=== PATIENT | male | born 1930 | race Caucasian/White ===

== ENCOUNTER 2017-08-30 21:06 | Emergency (ER) | payer MEDICARE, OTHER ==
--- NOTE | 2017-08-31 02:18 | ER ---
HISTORY OF PRESENT ILLNESS: An 87-year-old male here with complaints of what he thinks was a bug that possibly crawled into his right ear canal. He states he feels funny and there was a little bit of pain on one occasion. There has not been any drainage from the ear. The patient denies any other injury to the ear. He states he otherwise feels fine. OBJECTIVE: GENERAL APPEARANCE: The patient is awake and alert. No obvious distress. EARS: Examining the right ear reveals no tragal or auricular tenderness with palpation. The ear canal is open. There is no sign of a foreign body or insect. The patient does have 1 dark brown hard lump of cerumen that is occluding about 40% of the ear canal. Examining the left ear canal reveals about 60% occlusion with yellowish brown cerumen. DIAGNOSIS: Cerumen impaction bilateral. TREATMENT PLAN: The patient would like to have the earwax removed from his right ear if possible using a curette. I tried to remove it, but it was stuck quite firmly, and after a couple of attempts, I quit as it was causing some minor irritation to the tissue at the base of the cerumen. I advised the patient to purchase some earwax drops such as Debrox or Cerumenex and use them for a few days. They are from [place], [place]. They are planning on going home in a couple of days. I advised patient to schedule an appointment in about a week to have the earwax removed at his primary clinic. CRS/MODL /[id number]
== END 2017-08-30 22:02 | disposition home or self-care (01) ==
LOC: LB.ED 21:06
DX: H61.23 Impacted cerumen, bilateral (principal)
CPT/HCPCS: 99282

== ENCOUNTER 2018-08-03 22:35 | Observation (INO) | payer MEDICARE, OTHER ==
--- NOTE | 2018-08-03 23:33 | EDM.PDOC ---
ED HPI GENERAL MEDICAL PROBLEM - General Chief Complaint: General Stated Complaint: abdominal pain Time Seen by Provider: 08/03/18 23:09 Source of Information: Reports: Patient, EMS, RN History Limitations: Reports: No Limitations - History of Present Illness INITIAL COMMENTS - FREE TEXT/NARRATIVE: 88 yr old male presents with abdominal pain, states for about 1 month, but worse in the last couple of days and no BM for 2 days. States he had a fall on the weekend and has back pain from this. states he did have back pain started in March after lifting on the couch and increase in pain now, after the fall on the weekend. States hx of 5 stent, pacemaker, ablation to heart, parkinson's disease and hypertension. Pt is alert and talkative. EMS brought pt into the ER, states pt did walk to the cot at the home. Pt was given Fentanyl on the ambulance ride into the hospital. Back Pain Score (Numeric/FACES): 8 Abdomen Pain Score (Numeric/FACES): 5 Bilateral Lower Back Pain Score (Numeric/FACES): 7 Abdominal Pain Score (Numeric/FACES): 5 - Related Data Allergies Allergy/AdvReac Type Severity Reaction Status Date / Time No Known Allergies Allergy Verified 08/04/18 00:29 Home Meds: Home Meds Aspirin 81 mg PO DAILY 08/04/18 [History] Bisoprolol [Zebeta] 5 mg PO BID 08/04/18 [History] Carbidopa/Levodopa [Carbidopa-Levodopa 25-100 Tab] 0.5 tab PO TIDAC 08/04/18 [ History] Irbesartan 150 mg PO BEDTIME 08/04/18 [History] Melatonin 10 mg PO BEDTIME PRN 08/04/18 [History] Nitroglycerin [Nitrostat] 0.4 mg SL ASDIRECTED 08/04/18 [History] [place]-3 Fatty Acids [[place]-3] 1,200 mg PO BEDTIME 08/04/18 [History] Pravastatin [Pravachol] 40 mg PO BEDTIME 08/04/18 [History] Warfarin [Coumadin] 3 mg PO ASDIRECTED 08/04/18 [History] Warfarin [Coumadin] 6 mg PO ASDIRECTED 08/04/18 [History] Past Medical History HEENT History: Reports: None Cardiovascular History: Reports: Afib, CAD, High Cholesterol, Hypertension, Pacemaker, PTCA Neurological History: Reports: Parkinson's - Past Surgical History HEENT Surgical History: Reports: Adenoidectomy, Tonsillectomy Cardiovascular Surgical History: Reports: Coronary Artery Stent, Pacer ED ROS GENERAL - Review of Systems Review Of Systems: See Below Constitutional: Denies: Fever, Chills HEENT: Reports: Glasses Respiratory: Reports: No Symptoms Cardiovascular: Reports: No Symptoms GI/Abdominal: Reports: Abdominal Pain, Constipation (no BM for 2 days), Other ( last BM 2 days ago). Denies: Decreased Appetite, Hematochezia, Melena, Nausea, Vomiting : Reports: Other (decrease is urination) Musculoskeletal: Reports: Back Pain (low thoracic back pain, states a fall on the weekend and another injury to the back in March.) Skin: Reports: Bruising (right 2-4 toes.) Neurological: Reports: Other (parkinson like symptoms) Psychiatric: Reports: No Symptoms Hematologic/Lymphatic: Reports: Other (Takes Coumadin, atrial fibrillation, last INR 1 week ago and 2.7) ED EXAM, GENERAL - Physical Exam Exam: See Below Exam Limited By: No Limitations General Appearance: Alert, No Apparent Distress Ears: Hearing Grossly Normal Nose: Normal Inspection, Normal Mucosa Throat/Mouth: Normal Inspection, Normal Voice, No Airway Compromise Head: Atraumatic, Normocephalic Neck: Supple, Non-Tender, Full Range of Motion Respiratory/Chest: Lungs Clear, Normal Breath Sounds Cardiovascular: Normal Peripheral Pulses, Regular Rate, Rhythm Peripheral Pulses: 2+: Dorsalis Pedis (L), Dorsalis Pedis (R) GI/Abdominal: Normal Bowel Sounds, Tender, Other (mild distention). No: Guarding, Rigid Extremities: Other (pain and bruising to right 2-4 toes.) Neurological: Alert, Oriented, Normal Cognition Skin Exam: Warm, Dry, Normal Color Lymphatic: No Adenopathy Course - Vital Signs Last Recorded V/S: Last Vital Signs Temp 97.6 F 08/04/18 04:45 Pulse 66 08/04/18 04:45 Resp 18 08/04/18 04:45 BP 185/120 H 08/04/18 04:45 Pulse Ox 99 08/04/18 04:45 - Orders/Labs/Meds Orders: Active Orders 24 hr Category Date Time Status Abdomen 2V AP Flat Upright [CR] Stat Exams 08/03/18 23:33 Taken Medication Orders Sodium Chloride (Normal Saline) 1,000 mls @ 75 mls/hr IV ASDIRECTED ANNEL Last Admin: 08/04/18 00:50 Dose: 75 mls/hr Melatonin (Melatonin) 10 mg PO BEDTIME PRN PRN Reason: Sleep Last Admin: 08/04/18 01:54 Dose: 10 mg Non-Formulary Medication (Aspirin [Aspirin]) 81 mg PO DAILY ANNEL [Carbidopa-Levodopa 25-100 Tab] 0.5 Ta * Own Med 0.5 tab PO TIDAC ANNEL Last Admin: 08/04/18 01:53 Dose: 2 tab (Irbesartan [ Irbesartan] 150 Mg)* Own Med 150 mg PO BEDTIME ANNEL Last Admin: 08/04/18 01:46 Dose: 150 mg Non-Formulary Medication ([place]-3 Fatty Acids [[place]-3]) 1,200 mg PO BEDTIME ANNEL (Pravastatin [ Pravachol] 40 Mg) Own Med 40 mg PO BEDTIME ANNEL Last Admin: 08/04/18 01:47 Dose: 40 mg Non-Formulary Medication (Warfarin [Coumadin]) 3 mg PO ASDIRECTED ANNEL Non-Formulary Medication (Warfarin [Coumadin]) 6 mg PO ASDIRECTED ANNEL Last Admin: 08/04/18 01:58 Dose: 6 mg Polyethylene Glycol (Miralax) 17 gm PO ONETIME ONE Stop: 08/04/18 07:51 Labs: Laboratory Tests 08/03/18 08/03/18 Range/Units 23:50 23:50 WBC 9.7 (4.0-11.0) K/uL RBC 3.67 L (4.50-6.50) M/uL Hgb 12.3 L (13.0-18.0) g/dL Hct 36.2 L (40.0-54.0) % MCV 99 H (76-96) fL MCH 33.5 H (27.0-32.0) pg MCHC 34.0 (31.0-35.0) g/dL RDW 13.7 (11.0-16.0) % Plt Count 140 L (150-400) K/uL MPV 9.7 (6.0-10.0) fL Neut % (Auto) 74.6 H (45.0-70.0) % Lymph % (Auto) 15.1 L (20.0-40.0) % Coleman % (Auto) 9.3 (3.0-10.0) % Eos % (Auto) 0.8 L (1.0-5.0) % Baso % (Auto) 0.2 (0.0-0.5) % Neut # (Auto) 7.24 (2.00-7.50) K/uL Lymph # (Auto) 1.46 L (1.50-4.00) K/uL Coleman # (Auto) 0.90 H (0.20-0.80) K/uL Eos # (Auto) 0.08 (0.04-0.40) K/uL Baso # (Auto) 0.02 (0.02-0.10) K/uL Sodium 134 L (136-145) mmol/L Potassium 4.1 (3.5-5.1) mmol/L Chloride 95 L (98-107) mmol/L Carbon Dioxide 30.3 (21.0-32.0) mmol/L Anion Gap 12.8 (5.0-15.0) mmol/L BUN 23 (8-26) mg/dL Creatinine 1.13 (0.70-1.30) mg/dL Est Cr Clr Drug Dosing 48.45 mL/min Estimated GFR (MDRD) > 60 (>60) MLS/MIN BUN/Creatinine Ratio 20.4 (6-25) Glucose 112 H (74-100) mg/dL Calcium 8.5 (8.5-10.1) mg/dL Total Bilirubin 0.9 (0.0-1.0) mg/dL AST 21 (15-37) U/L ALT 14 (12-78) U/L Alkaline Phosphatase 80 (46-116) U/L Total Protein 7.2 (6.4-8.2) g/dL Albumin 3.7 (3.4-5.0) g/dL Globulin 3.5 (2.2-4.2) g/dL Albumin/Globulin Ratio 1.1 (0.8-2.0) Meds: Medications Generic Name Dose Route Start Last Admin Trade Name Freq PRN Reason Stop Dose Admin Sodium Chloride 1,000 mls @ 75 mls/hr 08/04/18 00:30 08/04/18 00:50 Normal Saline IV 75 mls/hr ASDIRECTED ANNEL Administration Melatonin 10 mg 08/04/18 01:00 08/04/18 01:54 Melatonin PO 10 mg BEDTIME PRN Administration Sleep Non-Formulary Medication 81 mg 08/04/18 08:00 Aspirin [Aspirin] PO DAILY ANNEL [Carbidopa-Levodopa 0.5 tab 08/04/18 07:00 08/04/18 01:53 25-100 Tab] 0.5 Ta * PO 2 tab Own Med TIDAC ANNEL Administration (Irbesartan [ 150 mg 08/04/18 00:33 08/04/18 01:46 Irbesartan] 150 Mg)* PO 150 mg Own Med BEDTIME ANNEL Administration Non-Formulary Medication 1,200 mg 08/04/18 20:00 [place]-3 Fatty Acids [[place]-3] PO BEDTIME ANNEL (Pravastatin [ 40 mg 08/04/18 00:34 08/04/18 01:47 Pravachol] 40 Mg) PO 40 mg Own Med BEDTIME ANNEL Administration Non-Formulary Medication 3 mg 08/04/18 00:45 Warfarin [Coumadin] PO ASDIRECTED ANNEL Non-Formulary Medication 6 mg 08/04/18 00:45 08/04/18 01:58 Warfarin [Coumadin] PO 6 mg ASDIRECTED ANNEL Administration Polyethylene Glycol 17 gm 08/04/18 07:50 Miralax PO 08/04/18 07:51 ONETIME ONE Discontinued Medications Generic Name Dose Route Start Last Admin Trade Name Freq PRN Reason Stop Dose Admin Bisacodyl 10 mg 08/04/18 00:22 08/04/18 01:42 Dulcolax RECTAL 08/04/18 00:23 10 mg ONETIME ONE Administration Hydromorphone HCl 0.5 mg 08/04/18 00:32 08/04/18 02:04 Dilaudid SUBCUT 08/04/18 00:33 0.5 mg ONETIME ONE Administration Hydromorphone HCl Confirm 08/04/18 01:57 08/04/18 02:19 Dilaudid Administered 08/04/18 01:58 Not Given Dose 2 mg .ROUTE .STK-MED ONE Magnesium Citrate 148 ml 08/04/18 00:27 08/04/18 01:52 Citrate Of Magnesia PO 08/04/18 00:28 Not Given ONETIME ONE Non-Formulary Medication 10 mg 08/04/18 00:45 08/04/18 01:58 Bisoprolol [Zebeta] PO 5 mg BID ANNEL Administration Non-Formulary Medication 50 mg 08/04/18 00:32 Diphenhydramine [Benadryl] PO BEDTIME PRN Insomnia Departure - Departure Time of Disposition: 00:45 Disposition: Refer to Observation Clinical Impression: Abdominal pain, Constipation - Discharge Information *PRESCRIPTION DRUG MONITORING PROGRAM REVIEWED*: Not Applicable *COPY OF PRESCRIPTION DRUG MONITORING REPORT IN PATIENT JEANNIE: Not Applicable - My Orders Last 24 Hours: My Active Orders 08/03/18 23:33 Abdomen 2V AP Flat Upright [CR] Stat - Assessment/Plan Last 24 Hours: My Active Orders 08/03/18 23:33 Abdomen 2V AP Flat Upright [CR] Stat Plan: Abdominal x-ray completed and notable stool to colon. CMP and CBC completed, no leukocytosis, afebrile, no N/V, last BM 2 days ago. Appetite good and eating well. Abdominal pain started this after noon, states pt had a good day and was active today. He occasionally takes colace, but doesn't know when the last time was. States he has been taking more Tylenol lately r/t to his back pain and in the past, this has raised the INR for him, according to the . CMP in unremarkable, slight elevation of BUN and slight decrease of Sodium. Will place pt on observation, start IV fluids Nacl at 75 cc/hr, treat the back pain, Give pt dulcolax suppository and see pt in am.
[2018-08-04] MEDS ORDERED: Bisacodyl 10 MG Supp RECTAL ONE (00:22)
[2018-08-04] MEDS ORDERED: Magnesium Citrate Solution 296 ML Bottle PO ONE (00:27)
[2018-08-04] MEDS ORDERED: DIPHENHYDRAMINE 50 MG PO PRN (00:32)
[2018-08-04] MEDS ORDERED: HYDROmorphone 4 MG/ML Syringe SUBCUT ONE (00:32)
[2018-08-04] MEDS ORDERED: BISOPROLOL 10 MG PO SCH (00:45)
[2018-08-04] MEDS ORDERED: Non-Formulary Medication 1 Each (Warfarin [Coumadin] 6 MG) PO SCH (00:45)
[2018-08-04] MEDS ORDERED: WARFARIN 3 MG PO SCH (00:45)
[2018-08-04] MEDS: Sodium Chloride 0.9% 1,000 ML IV SCH ×2 (00:50→13:46)
[2018-08-04] MEDS ORDERED: MELATONIN 10 MG PO PRN (01:00)
[2018-08-04] MEDS ORDERED: HYDROmorphone 2 MG/ML SDV ONE (01:57)
[2018-08-04] MEDS ORDERED: Polyethylene Glycol 3350 Powder 17 GM Packet PO ONE ×3 (07:50→20:00)
[2018-08-04] MEDS ORDERED: Non-Formulary Medication 1 Each (Aspirin [Aspirin] 81 MG) PO SCH (08:00)
--- NOTE | 2018-08-04 08:13 | CR ---
Date of Service: 08/03/18 Clinical Data: abdominal pain SUPINE AND UPRIGHT ABDOMEN: There is a moderate amount of gas and stool present throughout the colon. No definite evidence for obstruction or ileus. No free air. There are calcifications in the pelvis that are most likely vascular. There are surgical clips in the groin regions bilaterally. [id number] MTDD
[2018-08-04] MEDS: BISOPROLOL 5 MG PO SCH ×2 (08:15→20:30)
[2018-08-04] MEDS ORDERED: Non-Formulary Medication 1 Each PO SCH (09:15)
[2018-08-04] MEDS ORDERED: HYDROmorphone 2 MG/ML SDV SUBCUT PRN (17:12)
[2018-08-04] MEDS ORDERED: OMEGA PO SCH (20:00)
[2018-08-04] MEDS ORDERED: Fish Oil/Omega-3 Fatty Acids 1 Gm Cap PO SCH (20:00)
[2018-08-04] MEDS ORDERED: FATTY ACIDS PO SCH (20:00)
[2018-08-04] MEDS ORDERED: Sennosides 8.6 MG Tab ONE (20:53)
[2018-08-05] MEDS: Methocarbamol 500 MG Tab PO PRN ×2 (00:45→12:38)
[2018-08-05] MEDS: Sodium Chloride 0.9% 1,000 ML IV SCH (05:16)
[2018-08-05] MEDS ORDERED: Polyethylene Glycol 3350 Powder 17 GM Packet PO ONE (07:35)
[2018-08-05] MEDS: BISOPROLOL 5 MG PO SCH (07:49)
[2018-08-05] MEDS ORDERED: Aspirin 81 MG Tab.EC PO SCH (08:00)
[2018-08-05] MEDS ORDERED: Magnesium Citrate Solution 296 ML Bottle PO ONE (09:10)
[2018-08-05] MEDS ORDERED: Simethicone 80 MG Tab.Chew PO ONE (09:22)
--- NOTE | 2018-08-05 09:24 | PCM.PN ---
- General Info Date of Service: 08/04/18 Admission Dx/Problem (Free Text): Abdominal pain, bloating, constipation, possible ileus, Subjective Update: Small amount hard stool this am, upon awakening. Back pain achy, persists after fall at home on the weekend. Functional Status: Reports: Ambulating, Urinating - Review of Systems General: Reports: Fatigue HEENT: Reports: Glasses. Denies: Eye Pain, Sore Throat Pulmonary: Denies: Shortness of Breath, Cough Cardiovascular: Reports: Edema (mild swelling to ankles). Denies: Chest Pain, Dyspnea on Exertion Gastrointestinal: Reports: Abdominal Pain, Constipation, Decreased Appetite. Denies: Nausea, Vomiting Genitourinary: Denies: Dysuria, Hematuria Musculoskeletal: Reports: Back Pain Neurological: Denies: Confusion, Dizziness, Headache Psychiatric: Denies: Anxiety, Agitation - Patient Data Vitals - Most Recent: Last Vital Signs Temp 98.6 F 08/05/18 07:50 Pulse 66 08/05/18 07:50 Resp 18 08/05/18 07:50 BP 175/105 H 08/05/18 07:50 Pulse Ox 96 08/05/18 07:50 Weight - Most Recent: 165 lb 9.6 oz I&O - Last 24 Hours: Intake & Output 08/04/18 08/05/18 08/05/18 22:59 06:59 14:59 Intake Total 862 900 Balance 862 900 Med Orders - Current: Current Medications Aspirin (Halfprin) 81 mg PO DAILY [facility] Last Admin: 08/05/18 07:49 Dose: 81 mg Fish Oil (Fish Oil) 1 gm PO BEDTIME [facility] Last Admin: 08/04/18 20:30 Dose: 1 gm Hydromorphone HCl (Dilaudid) 0.5 mg SUBCUT Q2H PRN PRN Reason: Pain Sodium Chloride (Normal Saline) 1,000 mls @ 75 mls/hr IV ASDIRECTED [facility] Last Admin: 08/05/18 05:16 Dose: 75 mls/hr Magnesium Citrate (Citrate Of Magnesia) 296 ml PO ONETIME ONE Stop: 08/05/18 09:11 Melatonin (Melatonin) 10 mg PO BEDTIME PRN PRN Reason: Sleep Last Admin: 08/04/18 01:54 Dose: 10 mg Methocarbamol (Robaxin) 500 mg PO Q6H PRN PRN Reason: Muscle Spasm Last Admin: 08/05/18 00:45 Dose: 500 mg [Carbidopa-Levodopa 25-100 Tab] 0.5 Ta * Own Med 0.5 tab PO TIDAC [facility] Last Admin: 08/05/18 07:49 Dose: 2 tab (Irbesartan [ Irbesartan] 150 Mg)* Own Med 150 mg PO BEDTIME [facility] Last Admin: 08/04/18 20:30 Dose: 150 mg (Pravastatin [ Pravachol] 40 Mg) Own Med 40 mg PO BEDTIME [facility] Last Admin: 08/04/18 20:30 Dose: 40 mg Bisoprolol 5 Mg (Tablets) 5 each PO BID [facility] Last Admin: 08/05/18 07:49 Dose: 5 each Simethicone (Simethicone) 80 mg PO Q4H PRN PRN Reason: Abdominal Pain Warfarin Sodium (Coumadin) 3 mg PO MoFr@1800 ANNEL Warfarin Sodium (Coumadin) 6 mg PO SuTuWeThSa@1800 [facility] Last Admin: 08/04/18 20:30 Dose: 6 mg Discontinued Medications Bisacodyl (Dulcolax) 10 mg RECTAL ONETIME ONE Stop: 08/04/18 00:23 Last Admin: 08/04/18 01:42 Dose: 10 mg Hydromorphone HCl (Dilaudid) 0.5 mg SUBCUT ONETIME ONE Stop: 08/04/18 00:33 Last Admin: 08/04/18 02:04 Dose: 0.5 mg Hydromorphone HCl (Dilaudid) Confirm Administered Dose 2 mg .ROUTE .STK-MED ONE Stop: 08/04/18 01:58 Last Admin: 08/04/18 02:19 Dose: Not Given Magnesium Citrate (Citrate Of Magnesia) 148 ml PO ONETIME ONE Stop: 08/04/18 00:28 Last Admin: 08/04/18 01:52 Dose: Not Given Non-Formulary Medication (Aspirin [Aspirin]) 81 mg PO DAILY [facility] Last Admin: 08/04/18 08:52 Dose: 81 mg Non-Formulary Medication (Bisoprolol [Zebeta]) 10 mg PO BID [facility] Last Admin: 08/04/18 01:58 Dose: 5 mg Non-Formulary Medication (Diphenhydramine [Benadryl]) 50 mg PO BEDTIME PRN PRN Reason: Insomnia Non-Formulary Medication ([place]-3 Fatty Acids [[place]-3]) 1,200 mg PO BEDTIME ANNEL Non-Formulary Medication (Warfarin [Coumadin]) 3 mg PO ASDIRECTED ANNEL Non-Formulary Medication (Warfarin [Coumadin]) 6 mg PO ASDIRECTED ANNEL Last Admin: 08/04/18 01:58 Dose: 6 mg Non-Formulary Medication (Nf Drug) 10 each PO BID [facility] Last Admin: 08/04/18 20:05 Dose: Not Given Polyethylene Glycol (Miralax) 17 gm PO ONETIME ONE Stop: 08/04/18 07:51 Last Admin: 08/04/18 08:39 Dose: 17 gm Polyethylene Glycol (Miralax) 17 gm PO ONETIME ONE Stop: 08/04/18 20:01 Last Admin: 08/04/18 20:30 Dose: 17 gm Polyethylene Glycol (Miralax) 17 gm PO ONETIME ONE Stop: 08/05/18 07:36 Senna (Senna) Confirm Administered Dose 17.2 mg .ROUTE .STK-MED ONE Stop: 08/04/18 20:54 Last Admin: 08/04/18 20:30 Dose: 17.2 mg Senna/Docusate Sodium (Senna Plus) 2 tab PO ONETIME ONE Stop: 08/04/18 17:14 Last Admin: 08/04/18 21:07 Dose: Not Given - Exam General: Alert, Oriented, Cooperative, No Acute Distress HEENT: Mucous Membr. Moist/[place] Neck: Supple, Trachea Midline Lungs: Clear to Auscultation, Normal Respiratory Effort Cardiovascular: Regular Rate, Regular Rhythm GI/Abdominal Exam: Normal Bowel Sounds, Soft, Distended. No: Guarding, Rigid Back Exam: Normal Inspection Extremities: Non-Tender, Normal Capillary Refill, Other (Mild ankle edema noted) Peripheral Pulses: 2+: Dorsalis Pedis (L), Dorsalis Pedis (R) Skin: Warm, Dry, Intact Neurological: No New Focal Deficit Psy/Mental Status: Alert, Normal Affect, Normal Mood - Problem List & Annotations (1) Abdominal pain SNOMED Code(s): 15717716 Code(s): R10.9 - UNSPECIFIED ABDOMINAL PAIN Status: Acute Current Visit: Yes (2) Constipation SNOMED Code(s): 80084441 Code(s): K59.00 - CONSTIPATION, UNSPECIFIED Status: Acute Current Visit: Yes (3) Anticoagulant long-term use SNOMED Code(s): 234948563 Code(s): Z79.01 - 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 Status: Acute Current Visit: Yes - Problem List Review Problem List Initiated/Reviewed/Updated: Yes - My Orders Last 24 Hours: My Active Orders 08/04/18 09:06 Enema [RC] ASDIRECTED 08/04/18 17:12 HYDROmorphone [Dilaudid] 0.5 mg SUBCUT Q2H PRN 08/04/18 18:00 Warfarin [Coumadin] 6 mg PO SuTuWeThSa@1800 08/04/18 20:00 Fish Oil/[place]-3 Fatty Acids [Fish Oil] 1 gm PO BEDTIME Non-Formulary Medication [NF Drug] 5 each PO BID 08/05/18 08:00 Aspirin [Halfprin] 81 mg PO DAILY 08/05/18 09:10 Magnesium Citrate [Citrate of Magnesia] 296 ml PO ONETIME ONE 08/05/18 09:30 Simethicone 80 mg PO Q4H PRN 08/05/18 18:00 Warfarin [Coumadin] 3 mg PO MoFr@1800 - Plan Plan:: Abdominal pain, bloating and minimal hard BM this am. Taking clear liquids well , some loss of appetite, ambulating in room. has been staying with pt. Increase activity to ambulation in halls with assist as tolerated. Continue with IV fluids and clear liquids. Tap water enema today and start Miralax today. Report from radiology with moderate amount of stool and no ileus noted. If results from enema and taking fluids well by afternoon, will plan to discharge. Pt has utility porter anticoagulant therapy. INR this am and slightly elevated 3.9. Will adjust Coumadin to 3 mg , , and Wednesday and 6 mg other days. Repeat INR next week.
[2018-08-05] MEDS ORDERED: Simethicone 80 MG Tab.Chew PO PRN (09:30)
--- NOTE | 2018-08-05 14:46 | PCM.DCSUM1 ---
Discharge Summary - Hospital Course HPI Initial Comments: This Please 88 yr old male presented to ER by ambulance with abdominal pain, constipation and bloated. was with him. He had no BM for 2 days and uncomfortable, eating and drinking less. Hx of Parkinsons disease, 5 coronary stent, an ablation, chronic constipation on/off, [facility] anticoagulant therapy and hypertension. Pt had a fall about 1-2 weeks ago and started with low back pain and then this abdominal pain and constipation. He was place on observation with IV fluids for mild dehydration and decrease in appetite. X- ray of abodmen completed with possible ileus and moderate amount of stool noted. BUN slightly elevated. INR elevated to 3.9 and Coumadin dose was adjusted. Dilaudid given sq for back pain and abdominal pain, and bowel prep started with suppository, Miralax, Warm tap water enema, senna plus and mag citrate. Several results of large amount of stool today. Pt has remained ambulatory and taking clear liquids. Will discharge today with daily Miralax, change of Coumadin dose, Robaxin prn for back pain and RTC next week for follow- up. Diagnosis: Stroke: No - Discharge Data Discharge Date: 08/05/18 Discharge Disposition: Home, Self-Care 01 Condition: Good - Discharge Diagnosis/Problem(s) (1) Abdominal pain SNOMED Code(s): 95159688 ICD Code: R10.9 - UNSPECIFIED ABDOMINAL PAIN Status: Acute (2) Constipation SNOMED Code(s): 29175496 ICD Code: K59.00 - CONSTIPATION, UNSPECIFIED Status: Resolved (3) Anticoagulant long-term use SNOMED Code(s): 568303587 ICD Code: Z79.01 - MOBILE APPLICATION DEVELOPMENT LEAD (CURRENT) USE OF ANTICOAGULANTS Status: Chronic - Patient Instructions Diet: Heart Healthy Diet Activity: Rest and Relax Today Showering/Bathing: May Shower Notify Provider of: Increased Pain, Nausea and/or Vomiting Other/Special Instructions: Make an appointment at the clinic next week and have INR check. Note change in Coumadin dose, Miralax OTC daily as needed. Robaxin as needed for muscle relaxer for back. Continue with Tylenol as needed. - Discharge Plan *PRESCRIPTION DRUG MONITORING PROGRAM REVIEWED*: Not Applicable *COPY OF PRESCRIPTION DRUG MONITORING REPORT IN PATIENT JEANNIE: Not Applicable Prescriptions/Med Rec: Methocarbamol [Robaxin] 500 mg PO Q8H PRN #20 tablet PRN Reason: Muscle Spasm Home Medications: Home Meds Aspirin 81 mg PO DAILY 08/04/18 [History] Bisoprolol [Zebeta] 5 mg PO BID 08/04/18 [History] Carbidopa/Levodopa [Carbidopa-Levodopa 25-100 Tab] 0.5 tab PO TIDAC 08/04/18 [ History] Irbesartan 150 mg PO BEDTIME 08/04/18 [History] Melatonin 10 mg PO BEDTIME PRN 08/04/18 [History] Nitroglycerin [Nitrostat] 0.4 mg SL ASDIRECTED 08/04/18 [History] Meldrim-3 Fatty Acids [Meldrim-3] 1,200 mg PO BEDTIME 08/04/18 [History] Pravastatin [Pravachol] 40 mg PO BEDTIME 08/04/18 [History] Melatonin 10 mg PO BEDTIME PRN cap 08/05/18 [Rx] Methocarbamol [Robaxin] 500 mg PO Q8H PRN #20 tablet 08/05/18 [Rx] Simethicone 80 mg PO Q4H PRN tab.chew 08/05/18 [Rx] Warfarin [Coumadin] 3 mg PO MOFRSA@1800 tablet 08/05/18 [Rx] Warfarin [Coumadin] 6 mg PO SUTUWETH@1800 tablet 08/05/18 [Rx] Patient Handouts: Constipation, Adult, [id number], Back Exercises, Heat Therapy Forms: ED Department Discharge Referrals: PCP,None [Primary Care Provider] - - Discharge Summary/Plan Comment DC Time >30 min.: Yes (Instructed in adding Miralax daily, change of coumadin dose and Robaxin prn) Discharge Summary/Plan Comment: Moderate amount of stool with abdominal pain, constipation, and distended abdomen with start of ileus, resolved today. Will discharge today with daily Miralax, change of Coumadin dose, Robaxin prn for back pain and RTC next week for follow-up. - General Info Date of Service: 08/05/18 Admission Dx/Problem (Free Text: Abdominal pain, bloating, constipation, possible ileus, Subjective Update: Having several large BM today, before lunch. Functional Status: Reports: Ambulating, Urinating - Review of Systems General: Reports: Fatigue HEENT: Reports: Glasses. Denies: Headaches, Sinus Congestion, Visual Changes Pulmonary: Reports: No Symptoms Cardiovascular: Reports: No Symptoms Gastrointestinal: Reports: Other (Constipation resolved and abdominal pain improved.) Genitourinary: Denies: Dysuria, Frequency Musculoskeletal: Reports: Back Pain Skin: Reports: No Symptoms Neurological: Reports: No Symptoms Psychiatric: Reports: No Symptoms - Patient Data Vitals - Most Recent: Last Vital Signs Temp 98.6 F 08/05/18 07:50 Pulse 66 08/05/18 07:50 Resp 18 08/05/18 07:50 BP 175/105 H 08/05/18 07:50 Pulse Ox 96 08/05/18 07:50 Weight - Most Recent: 165 lb 9.6 oz I&O - Last 24 hours: Intake & Output 08/04/18 08/05/18 08/05/18 22:59 06:59 14:59 Intake Total 862 900 Balance 862 900 ABRIL Results - Last 24 hrs: Microbiology 08/04/18 02:00 MRSA Surveillance Culture - Final Nares, Right NO MRSA ISOLATED Med Orders - Current: Current Medications Discontinued Medications Aspirin (Halfprin) 81 mg PO DAILY [facility] Last Admin: 08/05/18 07:49 Dose: 81 mg Bisacodyl (Dulcolax) 10 mg RECTAL ONETIME ONE Stop: 08/04/18 00:23 Last Admin: 08/04/18 01:42 Dose: 10 mg Fish Oil (Fish Oil) 1 gm PO BEDTIME [facility] Last Admin: 08/04/18 20:30 Dose: 1 gm Hydromorphone HCl (Dilaudid) 0.5 mg SUBCUT ONETIME ONE Stop: 08/04/18 00:33 Last Admin: 08/04/18 02:04 Dose: 0.5 mg Hydromorphone HCl (Dilaudid) Confirm Administered Dose 2 mg .ROUTE .STK-MED ONE Stop: 08/04/18 01:58 Last Admin: 08/04/18 02:19 Dose: Not Given Hydromorphone HCl (Dilaudid) 0.5 mg SUBCUT Q2H PRN PRN Reason: Pain Sodium Chloride (Normal Saline) 1,000 mls @ 75 mls/hr IV ASDIRECTED [facility] Last Admin: 08/05/18 05:16 Dose: 75 mls/hr Magnesium Citrate (Citrate Of Magnesia) 148 ml PO ONETIME ONE Stop: 08/04/18 00:28 Last Admin: 08/04/18 01:52 Dose: Not Given Magnesium Citrate (Citrate Of Magnesia) 296 ml PO ONETIME ONE Stop: 08/05/18 09:11 Last Admin: 08/05/18 09:55 Dose: 296 ml Melatonin (Melatonin) 10 mg PO BEDTIME PRN PRN Reason: Sleep Last Admin: 08/04/18 01:54 Dose: 10 mg Methocarbamol (Robaxin) 500 mg PO Q6H PRN PRN Reason: Muscle Spasm Last Admin: 08/05/18 12:38 Dose: 500 mg Non-Formulary Medication (Aspirin [Aspirin]) 81 mg PO DAILY [facility] Last Admin: 08/04/18 08:52 Dose: 81 mg Non-Formulary Medication (Bisoprolol [Zebeta]) 10 mg PO BID [facility] Last Admin: 08/04/18 01:58 Dose: 5 mg [Carbidopa-Levodopa 25-100 Tab] 0.5 Ta * Own Med 0.5 tab PO TIDAC [facility] Last Admin: 08/05/18 11:54 Dose: 2 tab Non-Formulary Medication (Diphenhydramine [Benadryl]) 50 mg PO BEDTIME PRN PRN Reason: Insomnia (Irbesartan [ Irbesartan] 150 Mg)* Own Med 150 mg PO BEDTIME [facility] Last Admin: 08/04/18 20:30 Dose: 150 mg Non-Formulary Medication (Meldrim-3 Fatty Acids [Meldrim-3]) 1,200 mg PO BEDTIME [facility] (Pravastatin [ Pravachol] 40 Mg) Own Med 40 mg PO BEDTIME [facility] Last Admin: 08/04/18 20:30 Dose: 40 mg Non-Formulary Medication (Warfarin [Coumadin]) 3 mg PO ASDIRECTED [facility] Non-Formulary Medication (Warfarin [Coumadin]) 6 mg PO ASDIRECTED [facility] Last Admin: 08/04/18 01:58 Dose: 6 mg Non-Formulary Medication (Nf Drug) 10 each PO BID [facility] Last Admin: 08/04/18 20:05 Dose: Not Given Bisoprolol 5 Mg (Tablets) 5 each PO BID [facility] Last Admin: 08/05/18 07:49 Dose: 5 each Polyethylene Glycol (Miralax) 17 gm PO ONETIME ONE Stop: 08/04/18 07:51 Last Admin: 08/04/18 08:39 Dose: 17 gm Polyethylene Glycol (Miralax) 17 gm PO ONETIME ONE Stop: 08/04/18 20:01 Last Admin: 08/04/18 20:30 Dose: 17 gm Polyethylene Glycol (Miralax) 17 gm PO ONETIME ONE Stop: 08/05/18 07:36 Last Admin: 08/05/18 11:14 Dose: Not Given Senna (Senna) Confirm Administered Dose 17.2 mg .ROUTE .STK-MED ONE Stop: 08/04/18 20:54 Last Admin: 08/04/18 20:30 Dose: 17.2 mg Senna/Docusate Sodium (Senna Plus) 2 tab PO ONETIME ONE Stop: 08/04/18 17:14 Last Admin: 08/04/18 21:07 Dose: Not Given Simethicone (Simethicone) 80 mg PO Q4H PRN PRN Reason: Abdominal Pain Simethicone (Simethicone) 80 mg PO ONETIME ONE Stop: 08/05/18 09:23 Last Admin: 08/05/18 09:55 Dose: 80 mg Warfarin Sodium (Coumadin) 3 mg PO MoFr@1800 [facility] Warfarin Sodium (Coumadin) 6 mg PO SuTuWeThSa@1800 [facility] Last Admin: 08/04/18 20:30 Dose: 6 mg Warfarin Sodium (Coumadin) 3 mg PO MOFRSA@1800 [facility] Warfarin Sodium (Coumadin) 6 mg PO SUTUWETH@1800 [facility] - Exam General: Reports: Alert, Oriented, Cooperative HEENT: Reports: Mucous Membr. Moist/[place] Neck: Reports: Supple, Trachea Midline Lungs: Reports: Clear to Auscultation, Normal Respiratory Effort Cardiovascular: Reports: Regular Rate, Regular Rhythm GI/Abdominal Exam: Normal Bowel Sounds, Soft, Other (Mild distention, but improved.). No: Guarding, Rigid Back Exam: Reports: Normal Inspection, Full Range of Motion Extremities: Normal Inspection, Normal Capillary Refill, Other (Mild edema to ankles) Skin: Reports: Warm, Dry, Intact Neurological: Reports: Other (Hand tremors, parkinsons disease) Psy/Mental Status: Reports: Alert, Normal Affect, Normal Mood
[2018-08-05] MEDS ORDERED: Warfarin 3 MG Tab PO SCH ×2 (18:00)
== END 2018-08-05 14:38 | disposition home or self-care (01) ==
LOC: LB.ED 22:35 → UNDOADMOB 23:23 → LB.MS 23:23
PROVIDERS: ADMIT Nurse Practitioner Family; ATTEND Nurse Practitioner Family
DX: R10.9 Unspecified abdominal pain (principal); K59.00 Constipation, unspecified; E78.00 Pure hypercholesterolemia, unspecified; I10 Essential (primary) hypertension; G20 Parkinson's disease; Z79.01 Long term (current) use of anticoagulants; Z79.82 Long term (current) use of aspirin; Z79.899 Other long term (current) drug therapy; Z95.0 Presence of cardiac pacemaker
CPT/HCPCS: 36415; 74019; 80053; 85025; 85610; 99285; A9270; J1170; J7030; 96360; 96361; 96372; G0378